=== PATIENT | male | born 1995 | race Caucasian/White ===

== ENCOUNTER 2018-08-22 17:36 | Emergency (ER) | payer MEDICAID ==
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
== END 2018-08-22 21:10 ==
LOC: JD.ED 17:36
DX: F32.9 Major depressive disorder, single episode, unspecified (principal); Z79.899 Other long term (current) drug therapy
CPT/HCPCS: 99285

== ENCOUNTER 2018-10-04 22:41 | Emergency (ER) | payer MEDICAID ==
[2018-10-04] MEDS ORDERED: methylPREDNISolone Sodium Succinate 125 MG/2 ML SDV IM ONE (23:53)
--- NOTE | 2018-10-04 23:59 | EDM.PDOC ---
ED HPI GENERAL MEDICAL PROBLEM - General Chief Complaint: Chest Pain Stated Complaint: CHEST PAIN AND PAIN IN HIPS AND WHOLE BODY Time Seen by Provider: 10/04/18 22:58 Source of Information: Reports: Patient History Limitations: Reports: No Limitations - History of Present Illness INITIAL COMMENTS - FREE TEXT/NARRATIVE: This is a 23-year-old male. He comes in because he is having generalized soreness in his anterior chest and his joints are hurting. He apparently has a history of lupus for several years he states after taking a course of minocycline. He has been on prednisone in the past as well as hydroxychloroquine. Apparently he stopped the medications before he moved here and he is not found a physician since that time to start them again. He was recently about a month ago hospitalized for depression and suicidal ideation and he is under treatment at the [facility] and he is supposed to see them on Saturday. He says the depression is doing better. He is here simply for the aches and the pain from his lupus. He denies any nausea vomiting no diarrhea no fever no chills no cough or congestion. Chest Pain Score (Numeric/FACES): 9 - Related Data Allergies Allergy/AdvReac Type Severity Reaction Status Date / Time No Known Allergies Allergy Verified 08/22/18 18:15 Home Meds: Home Meds Dextroamphetamine/Amphetamine [Adderall 10 mg Tablet] 10 mg PO DAILY 08/22/18 [ History] Dextroamphetamine/Amphetamine [Adderall 10 mg Tablet] 15 mg PO DAILY 08/22/18 [ History] Escitalopram [Lexapro] 10 mg PO DAILY 08/22/18 [History] Hydroxychloroquine [Plaquenil] 200 mg PO BID 08/22/18 [History] buPROPion HCl [Wellbutrin Xl] 50 mg PO DAILY 08/22/18 [History] Dextroamphetamine/Amphetamine [Adderall] 15 mg PO DAILY #4 tab 10/05/18 [Rx] Hydroxychloroquine [Plaquenil] 200 mg PO QAM #20 tablet 10/05/18 [Rx] predniSONE [Prednisone] 5 mg PO QAM #10 tablet 10/05/18 [Rx] Past Medical History Neurological History: Reports: Other (See Below) Other Neuro History: lupas medicaly induced Psychiatric History: Reports: ADHD, Depression, PTSD - Past Surgical History Musculoskeletal Surgical History: Reports: Carpal Tunnel, Other (See Below) Other Musculoskeletal Surgeries/Procedures:: carpel tunnel and elbow surgeries Social & Family History - Tobacco Use Smoking Status *Q: Never Smoker - Caffeine Use Caffeine Use: Reports: Coffee, Soda - Recreational Drug Use Recreational Drug Use: No ED ROS GENERAL - Review of Systems Review Of Systems: See Below Constitutional: Reports: Malaise. Denies: Fever, Chills HEENT: Reports: No Symptoms Respiratory: Reports: No Symptoms Cardiovascular: Reports: Chest Pain Endocrine: Reports: No Symptoms GI/Abdominal: Reports: No Symptoms : Reports: No Symptoms Musculoskeletal: Reports: Other (Generalized arthralgias) Skin: Reports: No Symptoms Neurological: Reports: No Symptoms Psychiatric: Reports: No Symptoms Hematologic/Lymphatic: Reports: No Symptoms ED EXAM, GENERAL - Physical Exam Exam: See Below Exam Limited By: No Limitations General Appearance: Alert, WD/WN, No Apparent Distress Eye Exam: Bilateral Eye: Normal Inspection Ears: Normal External Exam Nose: Normal Inspection Throat/Mouth: Normal Inspection, Normal Lips, Normal Voice, No Airway Compromise Head: Normocephalic Neck: Supple Respiratory/Chest: No Respiratory Distress, Lungs Clear, Normal Breath Sounds, Other (He does appear to have some chest soreness on palpation) Cardiovascular: Regular Rate, Rhythm, No Murmur Back Exam: Normal Inspection, Full Range of Motion Extremities: Normal Inspection, Normal Range of Motion Neurological: Alert, Oriented Psychiatric: Flat Affect Skin Exam: Warm, Dry Course - Vital Signs Last Recorded V/S: Last Vital Signs Temp 99.1 F 10/04/18 22:47 Pulse 84 10/04/18 22:47 Resp 18 10/04/18 22:47 BP 124/84 10/04/18 22:47 Pulse Ox 100 10/04/18 22:47 - Orders/Labs/Meds Orders: Active Orders 24 hr Category Date Time Status EKG 12 Lead [EKG Documentation Completion] [RC] STAT Care 10/04/18 23:14 Active Labs: Laboratory Tests 10/04/18 10/04/18 Range/Units 23:25 23:25 WBC 6.84 (4.23-9.07) K/mm3 RBC 4.94 (4.63-6.08) M/mm3 Hgb 14.0 (13.7-17.5) gm/L Hct 41.1 (40.1-51.0) % MCV 83.2 (79.0-92.2) fl MCH 28.3 (25.7-32.2) pg MCHC 34.1 (32.2-35.5) g/dl RDW Std Deviation 40.6 (35.1-43.9) fL Plt Count 220 (163-337) K/mm3 MPV 9.7 (9.4-12.3) fl Neut % (Auto) 64.8 (34.0-67.9) % Lymph % (Auto) 21.8 (21.8-53.1) % [facility] % (Auto) 9.6 (5.3-12.2) % Eos % (Auto) 2.8 (0.8-7.0) Baso % (Auto) 0.9 (0.1-1.2) % Neut # (Auto) 4.43 (1.78-5.38) K/mm3 Lymph # (Auto) 1.49 (1.32-3.57) K/mm3 [facility] # (Auto) 0.66 (0.30-0.82) K/mm3 Eos # (Auto) 0.19 (0.04-0.54) K/mm3 Baso # (Auto) 0.06 (0.01-0.08) K/mm3 Sodium 140 (136-145) mEq/L Potassium 3.9 (3.5-5.1) mEq/L Chloride 105 (98-107) mEq/L Carbon Dioxide 30 (21-32) mEq/L Anion Gap 8.9 (5-15) BUN 12 (7-18) mg/dL Creatinine 1.2 (0.7-1.3) mg/dL Est Cr Clr Drug Dosing 108.41 mL/min Estimated GFR (MDRD) > 60 (>60) mL/min BUN/Creatinine Ratio 10.0 L (14-18) Glucose 92 (74-106) mg/dL Calcium 9.0 (8.5-10.1) mg/dL Total Bilirubin 0.3 (0.2-1.0) mg/dL AST 11 L (15-37) U/L ALT 18 (16-63) U/L Alkaline Phosphatase 78 (46-116) U/L C-Reactive Protein 0.3 (<1.0) mg/dL Total Protein 7.1 (6.4-8.2) g/dl Albumin 3.8 (3.4-5.0) g/dl Globulin 3.3 gm/dL Albumin/Globulin Ratio 1.2 (1-2) Meds: Medications Discontinued Medications Generic Name Dose Route Start Last Admin Trade Name Zachary PRN Reason Stop Dose Admin Methylprednisolone Sodium Succinate 125 mg 10/04/18 23:53 10/05/18 00:06 Solu-Medrol IM 10/04/18 23:54 125 mg ONETIME ONE Administration - Re-Assessments/Exams Free Text/Narrative Re-Assessment/Exam: 10/05/18 00:15 I spoke to the patient and his father regarding the lab results. Due to C reactive protein was normal which is good and doesn't have massive inflammation. I will put him back on his hydroxychloroquine and also a low dose prednisone. Departure - Departure Time of Disposition: 00:15 Disposition: Home, Self-Care 01 Condition: Fair Clinical Impression: Lupus erythematosus Qualifiers: Lupus erythematosus form: unspecified Qualified Code(s): L93.0 - Discoid lupus erythematosus Arthralgia Qualifiers: Joint pain location: unspecified Qualified Code(s): M25.50 - Pain in unspecified joint Prescriptions: Dextroamphetamine/Amphetamine [Adderall] 15 mg PO DAILY #4 tab Hydroxychloroquine [Plaquenil] 200 mg PO QAM #20 tablet predniSONE [Prednisone] 5 mg PO QAM #10 tablet Referrals: Orin Thao CEMENT PAVER [ED Midlevel Provider] - Forms: ED Department Discharge Additional Instructions: Once you get your medications start taking them every morning, call the provider that I have given you on Saturday to schedule an appointment to be seen so they can begin treating you for your lupus, I only give you a limited amount of hydroxychloroquine and prednisone because you need to see the provider, return to the ER if needed - My Orders Last 24 Hours: My Active Orders 10/04/18 23:14 EKG 12 Lead [EKG Documentation Completion] [RC] STAT - Assessment/Plan Last 24 Hours: My Active Orders 10/04/18 23:14 EKG 12 Lead [EKG Documentation Completion] [RC] STAT
== END 2018-10-05 00:32 | disposition home or self-care (01) ==
LOC: JD.ED 22:41
DX: L93.0 Discoid lupus erythematosus (principal); M25.50 Pain in unspecified joint; F32.9 Major depressive disorder, single episode, unspecified; Z79.899 Other long term (current) drug therapy
CPT/HCPCS: 36415; 80053; 85025; 86140; 93005; 96372; 99285; J2930; 93010; 99284

== ENCOUNTER 2018-11-26 18:30 | Emergency (ER) | payer MEDICAID, OTHER ==
[2018-11-26] MEDS ORDERED: Acetaminophen/HYDROcodone 325-5 MG Tab PO ONE (19:04)
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
--- NOTE | 2018-11-27 08:30 | CR ---
Right knee: Four views of the right knee were obtained. Comparison: No previous study. No joint effusion is seen. Medial and lateral joint compartments are maintained in height. No fracture or other bony abnormality is seen. Impression: 1. No abnormality is appreciated on right knee exam. Diagnostic code #1
--- NOTE | 2018-11-27 08:30 | CR ---
Right wrist: Four views of the right wrist are obtained. Comparison: No previous study. Small chip fracture is felt to be present off the anterior corner of the distal radius. Small well-corticated bony density is noted off the ulnar styloid process which appears to be old. Joint spaces are preserved. No additional fracture or other bony abnormality is seen. Impression: 1. Small chip fracture off the anterior corner of the distal radius. 2. Old bony finding off the ulnar styloid process. 3. Right wrist exam is otherwise unremarkable. Diagnostic code #3
--- NOTE | 2018-11-27 08:30 | CR ---
Right shoulder: Three views of the right shoulder were obtained. Comparison: No previous study. Glenohumeral and acromioclavicular joints appear unremarkable. No fracture, dislocation or other bony abnormality is seen. Impression: 1. No abnormality is identified on right shoulder study. Diagnostic code #1
--- NOTE | 2018-11-27 08:30 | CR ---
Right elbow: Four views of the right elbow were obtained. Comparison: No previous study. Sclerotic area is noted within the radial neck suspicious for minimally impacted radial neck fracture. Joint spaces within the elbow are preserved. No additional fracture or other abnormality is seen. Impression: 1. Findings suspicious for slightly impacted radial neck fracture. Diagnostic code #3
== END 2018-11-26 21:21 | disposition home or self-care (01) ==
LOC: JD.ED 18:30
DX: S52.121A Displaced fracture of head of right radius, initial encounter for closed fracture (principal); S52.501A Unspecified fracture of the lower end of right radius, initial encounter for closed fracture; S80.211A Abrasion, right knee, initial encounter; S50.311A Abrasion of right elbow, initial encounter; F32.9 Major depressive disorder, single episode, unspecified; F90.9 Attention-deficit hyperactivity disorder, unspecified type; F43.10 Post-traumatic stress disorder, unspecified; Z79.899 Other long term (current) drug therapy; V00.831A Fall from motorized mobility scooter, initial encounter
CPT/HCPCS: 29125; 73030; 73080; 73110; 73564; 99283; A9270

== ENCOUNTER 2021-05-23 15:10 | Emergency (ER) | payer MEDICAID ==
--- NOTE | 2021-05-23 19:10 | CR ---
Chest: Portable view of the chest was obtained. Comparison: Prior chest x-ray of 05/04/21. Heart size and mediastinum are normal. Lungs are clear with no acute parenchymal change. Bony structures appear within normal limits for the patient's age. Impression: 1. Nothing acute is appreciated on portable chest x-ray. Diagnostic code #1
--- NOTE | 2021-05-23 19:21 | EDM.PDOC ---
ED HPI GENERAL MEDICAL PROBLEM - General Chief Complaint: General Stated Complaint: CHEST TIGHTNESS/WEAK/SOB Time Seen by Provider: 05/23/21 17:07 Source of Information: Reports: Patient, RN Notes Reviewed History Limitations: Reports: No Limitations - History of Present Illness INITIAL COMMENTS - FREE TEXT/NARRATIVE: Patient is a 26-year-old male presenting to the emergency department with complaints of intermittent chest pain which he describes as tightness. He reports he has been getting this for "years ". Earlier this afternoon, he also had some mild dizziness, shortness of breath associated with chest tightness. He states that the symptoms occurred off and on for about 2 to 3 hours but have since resolved. He was not exerting himself when symptoms occurred. States he was sitting on the couch. Denies any cardiac history. He does have history of anxiety. Right Chest Pain Score (Numeric/FACES): 4 - Related Data Allergies Allergy/AdvReac Type Severity Reaction Status Date / Time No Known Allergies Allergy Verified 05/23/21 17:01 Home Meds: Home Meds Escitalopram [Lexapro] 10 mg PO DAILY 08/22/18 [History] buPROPion HCL [Wellbutrin Xl] 50 mg PO DAILY 08/22/18 [History] Hydroxychloroquine [Plaquenil] 200 mg PO QAM #20 tablet 10/05/18 [Rx] Dextroamphetamine/Amphetamine [Adderall] 15 mg PO BID 02/01/19 [History] Rizatriptan Benzoate [Rizatriptan] 1 tab PO Q2H PRN #3 tab.rapdis 02/02/19 [Rx] Past Medical History Neurological History: Reports: Other (See Below) Other Neuro History: lupas medicaly induced Psychiatric History: Reports: ADHD, Depression, PTSD Immunologic History: Reports: SLE - Past Surgical History HEENT Surgical History: Reports: Oral Surgery Musculoskeletal Surgical History: Reports: Carpal Tunnel, Nerve Relocation Other Musculoskeletal Surgeries/Procedures:: carpel tunnel and elbow surgeries Social & Family History - Tobacco Use Tobacco Use Status *Q: Never Tobacco User - Caffeine Use Caffeine Use: Reports: Coffee, Soda - Recreational Drug Use Recreational Drug Use: No - Living Situation & Occupation Living situation: Reports: Single, Alone Occupation: Unemployed ED ROS GENERAL - Review of Systems Review Of Systems: Comprehensive ROS is negative, except as noted in HPI. ED EXAM, GENERAL - Physical Exam Exam: See Below Exam Limited By: No Limitations General Appearance: Alert, WD/WN, No Apparent Distress Respiratory/Chest: No Respiratory Distress, Lungs Clear, Normal Breath Sounds, No Accessory Muscle Use, Chest Non-Tender Cardiovascular: Normal Peripheral Pulses, Regular Rate, Rhythm, No Edema, No Gallop, No JVD, No Murmur, No Rub GI/Abdominal: Normal Bowel Sounds, Soft, Non-Tender, No Organomegaly, No Distention, No Abnormal Bruit, No Mass Neurological: Alert, Oriented, CN II-XII Intact, Normal Cognition, Normal Gait, Normal Reflexes, No Motor/Sensory Deficits Psychiatric: Normal Affect, Normal Mood Skin Exam: Warm, Dry, Intact, Normal Color, No Rash #1 Interpretation EKG Date: 05/23/21 Time: 19:55 Rhythm: NSR Rate (Beats/Min): 86 [place]: Normal P-Wave: Present QRS: Normal ST-T: Normal QT: Normal Course - Vital Signs Last Recorded V/S: Last Vital Signs Temp 98.8 F 05/23/21 20:21 Pulse 88 05/23/21 20:21 Resp 16 05/23/21 20:21 BP 128/82 05/23/21 20:21 Pulse Ox 100 05/23/21 20:21 - Orders/Labs/Meds Orders: Active Orders 24 hr Category Date Time Status Isolation [COMM] Stat Ot 05/23/21 17:02 Ordered Labs: Laboratory Tests 05/23/21 05/23/21 05/23/21 Range/Units 17:40 18:45 18:45 WBC 6.13 (4.23-9.07) K/mm3 RBC 5.40 (4.63-6.08) M/mm3 Hgb 15.3 (13.7-17.5) gm/dl Hct 44.9 (40.1-51.0) % MCV 83.1 (79.0-92.2) fl MCH 28.3 (25.7-32.2) pg MCHC 34.1 (32.2-35.5) g/dl RDW Std Deviation 38.3 (35.1-43.9) fL Plt Count 234 (163-337) K/mm3 MPV 10.2 (9.4-12.3) fl Neut % (Auto) 62.1 (34.0-67.9) % Lymph % (Auto) 23.0 (21.8-53.1) % [place] % (Auto) 10.1 (5.3-12.2) % Eos % (Auto) 3.3 (0.8-7.0) Baso % (Auto) 1.3 H (0.1-1.2) % Neut # (Auto) 3.81 (1.78-5.38) K/mm3 Lymph # (Auto) 1.41 (1.32-3.57) K/mm3 [place] # (Auto) 0.62 (0.30-0.82) K/mm3 Eos # (Auto) 0.20 (0.04-0.54) K/mm3 Baso # (Auto) 0.08 (0.01-0.08) K/mm3 D-Dimer, Quantitative < 0.19 L (0.19-0.50) mg/L Sodium (136-145) mEq/L Potassium (3.5-5.1) mEq/L Chloride (98-107) mEq/L Carbon Dioxide (21-32) mEq/L Anion Gap (5-15) BUN (7-18) mg/dL Creatinine (0.7-1.3) mg/dL Est Cr Clr Drug Dosing mL/min Estimated GFR (MDRD) (>60) mL/min BUN/Creatinine Ratio (14-18) Glucose (70-99) mg/dL Calcium (8.5-10.1) mg/dL Total Bilirubin (0.2-1.0) mg/dL AST (15-37) U/L ALT (16-63) U/L Alkaline Phosphatase (46-116) U/L Troponin I (0.00-0.056) ng/mL C-Reactive Protein (<1.0) mg/dL Total Protein (6.4-8.2) g/dl Albumin (3.4-5.0) g/dl Globulin gm/dL Albumin/Globulin Ratio (1-2) SARS-CoV-2 RNA (JOSUE) Negative (NEGATIVE) 05/23/21 Range/Units 18:45 WBC (4.23-9.07) K/mm3 RBC (4.63-6.08) M/mm3 Hgb (13.7-17.5) gm/dl Hct (40.1-51.0) % MCV (79.0-92.2) fl MCH (25.7-32.2) pg MCHC (32.2-35.5) g/dl RDW Std Deviation (35.1-43.9) fL Plt Count (163-337) K/mm3 MPV (9.4-12.3) fl Neut % (Auto) (34.0-67.9) % Lymph % (Auto) (21.8-53.1) % [place] % (Auto) (5.3-12.2) % Eos % (Auto) (0.8-7.0) Baso % (Auto) (0.1-1.2) % Neut # (Auto) (1.78-5.38) K/mm3 Lymph # (Auto) (1.32-3.57) K/mm3 [place] # (Auto) (0.30-0.82) K/mm3 Eos # (Auto) (0.04-0.54) K/mm3 Baso # (Auto) (0.01-0.08) K/mm3 D-Dimer, Quantitative (0.19-0.50) mg/L Sodium 140 (136-145) mEq/L Potassium 4.1 (3.5-5.1) mEq/L Chloride 103 (98-107) mEq/L Carbon Dioxide 28 (21-32) mEq/L Anion Gap 13.1 (5-15) BUN 12 (7-18) mg/dL Creatinine 1.2 (0.7-1.3) mg/dL Est Cr Clr Drug Dosing 118.59 mL/min Estimated GFR (MDRD) > 60 (>60) mL/min BUN/Creatinine Ratio 10.0 L (14-18) Glucose 99 (70-99) mg/dL Calcium 9.2 (8.5-10.1) mg/dL Total Bilirubin 0.4 (0.2-1.0) mg/dL AST 19 (15-37) U/L ALT 41 (16-63) U/L Alkaline Phosphatase 76 (46-116) U/L Troponin I 0.052 (0.00-0.056) ng/mL C-Reactive Protein < 0.2 (<1.0) mg/dL Total Protein 7.4 (6.4-8.2) g/dl Albumin 4.0 (3.4-5.0) g/dl Globulin 3.4 gm/dL Albumin/Globulin Ratio 1.2 (1-2) SARS-CoV-2 RNA (JOSUE) (NEGATIVE) - Re-Assessments/Exams Free Text/Narrative Re-Assessment/Exam: Patient is a 26-year-old male presenting to the emergency department with comp laints of intermittent chest pain for the last few years as well as some shortness of breath and dizziness. Symptoms occurred intermittently over course of 2 to 3 hours but of since resolved. Exam is unremarkable. I have ordered blood work, EKG, chest x-ray. 05/23/21 20:13 Hematology is unremarkable. Chest x-ray shows no acute abnormalities. EKG shows normal sinus rhythm at 86. Results discussed with patient. Symptoms may have been related to anxiety. Recommend that he follow-up with his primary care provider at next available visit and discussed return precautions. Discharge instructions as documented. Departure - Departure Time of Disposition: 20:15 Disposition: Home, Self-Care 01 Condition: Good Clinical Impression: Atypical chest pain - Discharge Information *PRESCRIPTION DRUG MONITORING PROGRAM REVIEWED*: No *COPY OF PRESCRIPTION DRUG MONITORING REPORT IN PATIENT SHANTA: No Instructions: Nonspecific Chest Pain, Adult Referrals: Talha Guidry MD [Primary Care Provider] - Forms: ED Department Discharge Additional Instructions: Continue medications as previously prescribed. Avoid caffeine consumption. Follow-up with your primary care provider at next available visit. Return to ER for any new or worsening symptoms of concern. Sepsis Event Note (ED) - Evaluation Sepsis Screening Result: No Definite Risk - Focused Exam Vital Signs: Vital Signs Temp Pulse Resp BP Pulse Ox 05/23/21 20:21 98.8 F 88 16 128/82 100 05/23/21 16:55 98.7 F 98 20 136/91 H 97
== END 2021-05-23 20:21 | disposition home or self-care (01) ==
LOC: JD.ED 15:10
DX: R07.89 Other chest pain (principal); Z20.822 Contact with and (suspected) exposure to COVID-19
CPT/HCPCS: 36415; 71045; 71045-26; 80053; 84484; 85025; 85379; 86140; 93005; 99285-25; U0002